=== PATIENT | female | born 1990 | race Two or more races ===

== ENCOUNTER 2022-07-22 09:35 | Outpatient (CLI) | payer OTHER | END 2022-07-22 11:55 | disposition home or self-care (01) | LOC: PRENATAL 09:35 | PROVIDERS: ATTEND Obstetrics & Gynecology Maternal & Fetal Medicine | DX: O35.9XX0 Maternal care for (suspected) fetal abnormality and damage, unspecified, not applicable or unspecified (principal); O35.3XX0 Maternal care for (suspected) damage to fetus from viral disease in mother, not applicable or unspecified; Z3A.21 21 weeks gestation of pregnancy ==

== ENCOUNTER 2022-10-07 09:31 | Outpatient (CLI) | payer OTHER | END 2022-10-07 10:28 | disposition home or self-care (01) | LOC: PRENATAL 09:31 | PROVIDERS: ATTEND Obstetrics & Gynecology Maternal & Fetal Medicine | DX: O26.849 Uterine size-date discrepancy, unspecified trimester (principal); O36.8199 Decreased fetal movements, unspecified trimester, other fetus; Z3A.32 32 weeks gestation of pregnancy ==

== ENCOUNTER 2022-11-18 08:01 | Inpatient (IN) | payer OTHER ==
[~2022-11-18] VITALS: Ht 177.8 cm; Wt 3.6 kg
[2022-11-18] MEDS ORDERED: PRENATAL TABLE1 EAC4 PO (08:23)
[2022-11-21] MEDS ORDERED: DOCUSATE SODIU100 MG PO (09:33)
[2022-11-21] MEDS ORDERED: IBUPROFEN800 MG PO (09:33)
[2022-11-21] MEDS ORDERED: OXYC1TAB9 PO (09:33)
== END 2022-11-21 15:02 | disposition home or self-care (01) | DRG 788 ==
LOC: LDR 08:01 → OB/GYN 08:01
PROVIDERS: ADMIT Student in an Organized Health Care Education/Training Program; ATTEND Student in an Organized Health Care Education/Training Program
PROC: 4A1HXCZ Monitoring of Products of Conception, Cardiac Rate, External Approach (ICD-10-PCS; 2022-11-18)
PROC: 10D00Z1 Extraction of Products of Conception, Low, Open Approach (ICD-10-PCS; principal; 2022-11-18 20:00)
DX: O36.63X0 Maternal care for excessive fetal growth, third trimester, not applicable or unspecified (principal); O76 Abnormality in fetal heart rate and rhythm complicating labor and delivery; O99.824 Streptococcus B carrier state complicating childbirth; Z3A.38 38 weeks gestation of pregnancy; Z37.0 Single live birth; Z20.822 Contact with and (suspected) exposure to COVID-19